=== PATIENT | male | born 1995 | race Caucasian/White ===

== ENCOUNTER 2025-03-05 15:03 | Emergency (ER) | payer MEDICAID ==
[~2025-03-05] VITALS: Ht 182.9 cm; Wt 105.0 kg
[2025-03-05 15:08] VITALS: O2SAT 100
[2025-03-05] MEDS ORDERED: BO1 TP (16:23)
[2025-03-05] MEDS ORDERED: HYDR453.3 TP (16:23)
[2025-03-05] MEDS: KETOROLAC 30MG/ML VIAL IM ONE (17:08)
[2025-03-05 17:13] VITALS: BP 120/77; PULSE 56; RESP 14; TEMP 36.9; O2SAT 99
== END 2025-03-05 17:15 | disposition home or self-care (01) ==
LOC: ER 15:03
DX: R21 Rash and other nonspecific skin eruption (principal); I10 Essential (primary) hypertension
CPT/HCPCS: 96372; 99283; J1885; Z7610 ×2

== ENCOUNTER 2025-04-18 15:33 | Emergency (ER) | payer MEDICAID ==
[~2025-04-18] VITALS: Ht 180.3 cm; Wt 105.0 kg
[~2025-04-18 15:33] MED LIST: BO1 TP; HYDR453.3 TP
[2025-04-18 15:38] VITALS: O2SAT 95
[2025-04-18] MEDS ORDERED: CEPH500C2 MT (18:38)
[2025-04-18] MEDS ORDERED: MUPI1OIN4 TP (18:38)
[2025-04-18] MEDS: KETOROLAC 30MG/ML VIAL IM ONE (19:03)
[2025-04-18 19:33] VITALS: BP 114/83; PULSE 60; RESP 15; TEMP 37.3; O2SAT 96
== END 2025-04-18 19:38 | disposition home or self-care (01) ==
LOC: ER 15:33
DX: L97.329 Non-pressure chronic ulcer of left ankle with unspecified severity (principal); L97.319 Non-pressure chronic ulcer of right ankle with unspecified severity; Z79.899 Other long term (current) drug therapy
CPT/HCPCS: 99283; 96372; J1885